=== PATIENT | female | born 2000 | race African-American/Black ===

== ENCOUNTER 2022-10-21 15:06 | Emergency (ER) | payer OTHER ==
[2022-10-21 15:45] LABS: BASOPHILS # (AUTO) 0.1 10^3/uL (0.0-0.1); BASOPHILS % (AUTO) 0.9 %; EOSINOPHILS # (AUTO) 0.1 10^3/uL (0.0-0.7); HCT - HEMATOCRIT 44.5 % (37.0-47.0); HGB - HEMOGLOBIN 15.3 g/dL (12.0-16.0); LYMPHOCYTES # (AUTO) 3.2 10^3/uL (1.5-3.5); MEAN CORPUSCULAR HEMOGLOBIN 31.2 pg (27.0-31.0); MEAN CORPUSCULAR HGB CONC 34.4 g/dL (32.0-36.0); MEAN CORPUSCULAR VOLUME 90.6 fL (81.0-99.0); MEAN PLATELET VOLUME 9.2 fL (7.9-10.8); MONOCYTES # (AUTO) 0.6 10^3/uL (0.0-1.0); MONOCYTES % (AUTO) 7.8 %; NEUTROPHILS # (AUTO) 4.2 10^3/uL (1.5-6.6); NEUTROPHILS % (AUTO) 51.2 %; PLT - PLATELET COUNT 490 10^3/uL (130-450); RED BLOOD COUNT 4.91 10^6/uL (4.20-5.40); RED CELL DISTRIBUTION WIDTH 12.8 % (12.0-15.0); WHITE BLOOD COUNT 8.2 x10^3/uL (4.8-10.8)
[2022-10-21 16:02] LABS: ALBUMIN 4.8 g/dL (3.2-5.5); ALBUMIN/GLOBULIN RATIO 1.5 (1.0-2.2); BILIRUBIN,TOTAL 0.9 mg/dL (0.2-1.0); CALCIUM 10.1 mg/dL (8.5-10.3); CREATININE 0.9 mg/dL (0.6-1.3); POTASSIUM 3.6 mmol/L (3.5-4.5); TOTAL PROTEIN 8.1 g/dL (6.4-8.9)
[2022-10-21 16:28] LABS: HCG,QUALITATIVE BLOOD NEGATIVE
[2022-10-21 17:02] VITALS: BP 140/83
--- NOTE | 2022-10-21 17:23 | ED Physician Documentation ---
History of Present Illness - Stated complaint Stated Complaint: SOA/CHEST PX - Chief complaint Chief Complaint: Cardiac - Additonal information Additional information: 22-year-old female presents emergency department for evaluation of chest pain has been present now for about 4 days. She feels it most when she presses on her chest. No cough or fevers. No syncope. It is not exertional. It does feel like it is tight in her chest. No history of asthma. She has been able to continue her daily activities including running. No recent travel, unilateral leg swelling, surgery or immobilization. No personal history of clots or cancer. She does have the IUD in place. Takes no prescribed medications. Was told years ago that she had costochondritis. Patient has taken some ibuprofen which is helped symptoms. Review of Systems Constitutional: denies: Fever, Chills Throat: reports: Reviewed and negative Cardiac: reports: Chest pain / pressure Respiratory: denies: Dyspnea GI: reports: Reviewed and negative : reports: Reviewed and negative PD PAST MEDICAL HISTORY - Allergies Allergies/Adverse Reactions: Allergies Allergy/AdvReac Type Severity Reaction Status Date / Time No Known Drug Allergies Allergy Verified 10/21/22 15:09 PD ED PE NORMAL - General General: Alert and oriented X 3, No acute distress - Cardiac Cardiac: RRR, No murmur - Respiratory Respiratory: No respiratory distress, Clear bilaterally - Abdomen Abdomen: Normal bowel sounds, Soft - Back Back: No CVA TTP Results - Vitals Vitals: Vital Signs - 24 hr 10/21/22 10/21/22 15:09 16:59 Temperature 36.5 C Heart Rate 90 88 Respiratory 22 18 Rate Blood Pressure 150/90 H 140/83 H O2 Saturation 100 100 Oxygen O2 Source Room air - EKG (time done) 1511 EKG releavant findings:: EKG personally interpreted by author of this note. Relevant findings are: Rate: Rate (enter#) (92) Rhythm: NSR [place]: Normal Intervals: Normal [place] QRS: Normal Ischemia: Normal ST segments Computer interpretation: Agree with computer - Labs Labs: Laboratory Tests 10/21/22 10/21/22 10/21/22 15:36 15:36 15:36 WBC 8.2 RBC 4.91 Hgb 15.3 Hct 44.5 MCV 90.6 MCH 31.2 H MCHC 34.4 RDW 12.8 Plt Count 490 H MPV 9.2 Neut # (Auto) 4.2 Lymph # (Auto) 3.2 [place] # (Auto) 0.6 Eos # (Auto) 0.1 Baso # (Auto) 0.1 Absolute Nucleated RBC 0.00 Nucleated RBC % 0.0 Sodium 138 Potassium 3.6 Chloride 107 Carbon Dioxide 22 Anion Gap 9.0 BUN 8 Creatinine 0.9 Estimated GFR (MDRD) 93 Glucose 100 Calcium 10.1 Total Bilirubin 0.9 AST 15 ALT 12 Alkaline Phosphatase 56 Troponin I High Sens 2.6 Total Protein 8.1 Albumin 4.8 Globulin 3.3 Albumin/Globulin Ratio 1.5 Lipase 36 Serum HCG, Qual 10/21/22 15:36 WBC RBC Hgb Hct MCV MCH MCHC RDW Plt Count MPV Neut # (Auto) Lymph # (Auto) [place] # (Auto) Eos # (Auto) Baso # (Auto) Absolute Nucleated RBC Nucleated RBC % Sodium Potassium Chloride Carbon Dioxide Anion Gap BUN Creatinine Estimated GFR (MDRD) Glucose Calcium Total Bilirubin AST ALT Alkaline Phosphatase Troponin I High Sens Total Protein Albumin Globulin Albumin/Globulin Ratio Lipase Serum HCG, Qual NEGATIVE - Rads (name of study) cxr Relevant Findings:: EMP independent interpretation of test (No acute cardiopulmonary process) PD Medical Decision Making - ED course Complexity details: reviewed results, re-evaluated patient, d/w patient ED course: 22-year-old female presents emergency department for evaluation of 4 days chest pain. Feels like a tightness in her chest. Not pleuritic. Nonexertional. Has been told she has costochondritis in the past and the pain today did improve after taking ibuprofen. An EKG was completed and as interpreted by myself shows sinus rhythm without any ischemic changes. We did obtain CBC, electrolytes and a troponin which per my interpretation were all negative. Patient is PERC negative. History and exam is not consistent with PE or ACS. No evidence of pneumonia, pneumothorax or pleural effusion on chest x-ray. Clinically this does not sound like an esophageal rupture. At this point I feel the patient likely has costochondritis. I am encouraging her to do scheduled doses of Tylenol and ibuprofen. If not markedly better would return to the ER for repeat evaluation. Departure - Departure Disposition: 01 Home, Self Care Clinical Impression: Chest pain Qualifiers: Chest pain type: intercostal pain Qualified Code(s): R07.82 - Intercostal pain Condition: Stable Record reviewed to determine appropriate education?: Yes Instructions: ED Chest Pain Costochondritis Comments: As discussed at the bedside your chest x-ray showed no evidence of pneumonia, pneumothorax, cardiomegaly or pleural effusion. Your labs are also essentially normal. Your EKG was normal for age. I can tell you with confidence that you are not having a heart attack. I can also tell you with 99% confidence that I do not believe you have a pulmonary embolism or blood clot in your lungs. Because I am able to reproduce the chest pain by palpation of your chest I suspect that this may be costochondritis or inflammation of the muscles between your ribs. In general this is a self-limiting condition and gets better over time. I do recommend that you schedule doses of Tylenol 500 mg 3 times a day or alternate with 600 mg of ibuprofen taken with food also 3-4 times a day. With this treatment I would expect your symptoms to be getting markedly better over the next 3 to 4 days. If not improving or worsening then please return to the ER immediately for repeat evaluation.
--- NOTE | 2022-10-21 17:23 | XRAY Report ---
PROCEDURE: Chest 1 View X-Ray INDICATIONS: Chest pain TECHNIQUE: One view of the chest was acquired. COMPARISON: None. FINDINGS: Surgical changes and devices: None. Lungs and pleura: No pleural effusions or pneumothorax. Lungs are clear. Mediastinum: Mediastinal contours appear normal. Heart size is normal. Bones and chest wall: No suspicious bony lesions. Mild dextroconvex scoliotic curvature is seen. O verlying soft tissues appear unremarkable. IMPRESSION: No acute cardiopulmonary process. No focal infiltrates are seen. No pneumothorax. Reviewed by: Aravind Tidwell MD on 10/21/2022 4:22 PM AKDT Approved by: Aravind Tidwell MD on 10/21/2022 4:22 PM AKDT Station ID: [id number]
== END 2022-10-21 17:33 | disposition home or self-care (01) ==
LOC: ED 15:06
DX: R07.82 Intercostal pain (principal)
CPT/HCPCS: 36415; 80053; 83690; 84484; 84703; 85025; 93005; 99283; 99284